=== PATIENT | male | born 1965 | race Caucasian/White ===

== ENCOUNTER 2016-11-23 07:23 | Emergency (ER) | payer BC ==
[2016-11-23 07:40] VITALS: TEMP 98.7; BMI 32.3
[2016-11-23 08:20] LABS: ALL NEG? NO
[2016-11-23 08:31] LABS: AUTOMATED BASOPHIL 0.4 % (0-2); AUTOMATED EOSINOPHIL 0.3 % (0-5); AUTOMATED LYMPH 23.7 % (17-44); AUTOMATED MONOCYTE 4.4 % (3-10); AUTOMATED NEUTROPHIL 71.2 % (45-76); MPV 7.1 fL (7.4-10.4)
[2016-11-23 08:32] LABS: RBC/URINE 0-2 (0-2); WBC/URINE 0-2 (0-2)
[2016-11-23 08:36] LABS: METHAMPHETAMINES NEG (NEGATIVE)
[2016-11-23 08:37] LABS: MDMA* NEG (NEGATIVE); OXYCODONE NEG (NEGATIVE)
[2016-11-23 08:45] LABS: LEUKOCYTES/URINE NEG (NEGATIVE); NITRITE/URINE NEG (NEGATIVE); URINE OCCULT BLOOD NEG (NEG/TRACE)
[2016-11-23 08:46] LABS: BLOOD UREA NITROGEN 20 MG/DL (9-20); CALCIUM 9.4 MG/DL (8.4-10.2); CALCULATED OSMOLALITY 270 MOs/Kg (270-290); CHLORIDE 94 mEq/L (98-107); CPK (TOTAL ONLY) 88 IU/L (55-170); GLUCOSE 191 MG/DL (70-99); SODIUM LEVEL 136 mEq/L (137-146)
--- NOTE | 2016-11-23 08:51 | DIRPT ---
CLINICAL DATA: Several day history weakness; possibly related to medication; none in PACs EXAM: CHEST 2 VIEW COMPARISON: None in PACs FINDINGS: The lungs are adequately inflated. There is no focal infiltrate. There is no pleural effusion. The heart and pulmonary vascularity are normal. The mediastinum is normal in width. 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 IMPRESSION: There is no active cardiopulmonary disease. Electronically Signed By: Yosef Deng M.D. On: 11/23/2016 08:49
[2016-11-23 09:16] LABS: hTSH 0.52 uIU/mL (0.5-4.67)
--- NOTE | 2016-11-23 09:33 | EDPRACDOC ---
- General Information Chief Complaint: Generalized Weakness Stated Complaint: WEAKNESS Time Seen by Provider: 11/23/16 07:37 Information Source: Patient Home Medications: Home Medications Diphenhydramine HCl [Sleep Aid] 25 mg PO .UP TO 5XDAILY PRN 11/23/16 Metformin HCl 500 mg PO BID #60 tab 11/23/16 Methadone HCl 150 mg PO DAILY 11/23/16 Pimozide [Orap] 2 mg PO TID 11/23/16 Allergies/Adverse Reactions: Allergies Allergy/AdvReac Type Severity Reaction Status Date / Time No Known Drug Allergies Allergy Unknown Verified 11/23/16 08:05 - History of Present Illness Onset: SEVERAL DAYS Exact Onset of Symptoms: Unknown Symptoms Started: Reports: Gradually Symptoms Description: Constant Weakness: Bilateral: Generalized Symptoms: Reports: Weak Symptom Severity: Reports: Does not affect activitiy Associated signs and symptoms:: Reports: None Other History: GENERALIZED WEAKNESS FOR SEVERAL WEEKS NOW. NO ALLEVIATING OR AGGRAVATING FACTORS. RECENTLY ASSOCIATED WITH INSOMNIA HE WAS TAKING [id number] BENADRYL 4-5 PER DAY TO ASSIST WITH SLEEPING HOWEVER HE HAS NOT USED THIS FOR APPROXIMATELY 1 WEEK. PATIENT HAS NOT FELT WELL, THEREFORE HE IS TAKING VACATION TIME CC CAN GET RIGHT LEG IS HELD BACK TO NORMAL TODAY CAN CONTINUE WORK. 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 negative: Chills, Fever, Diaphoresis, Weight gain, Weight loss Eyes: No Symptoms Reported Ears: No Symptoms Reported Throat: No Symptoms Reported Mouth: No Symptoms Reported Respiratory: No Symptoms Reported. negative: Shortness of Breath Cardiovascular: Other (NO DYSPNEA ON EXERTION). negative: Chest Pain, Cyanosis , Edema, Orthopnea, PND, Syncope Gastrointestinal: No Symptoms Reported Genitourinary: No Symptoms Reported Neurological: Weakness. negative: Gait Difficulty, Headache, Numbness, Mood Changes, Memory Changes Musculoskeletal: No Symptoms Reported Integumentary: No Symptoms Reported Allergic/Immunologic: No Symptoms Reported Hematologic: No Symptoms Reported - Physical Exam Constitutional: Alert (Awake), No apparent distress Oriented to: Time, Person, Place Last recorded Vital Signs: Last Vital Signs Temp 98.7 F 11/23/16 07:36 Pulse 85 11/23/16 09:10 Resp 16 11/23/16 09:10 BP 157/84 11/23/16 09:10 Pulse Ox 93 11/23/16 09:10 Oxygen Pulse Oxygen Saturation 93 O2 Device Room Air Oxygen Flow Rate Fraction of Inspired Oxygen ( FIO2) - HEENT Head: Normal ( normocephalic) Eye Exam: Normal (PERRL, EOMI, Sclera white) Oropharynx: Normal (Pharynx:Moist without exudate,Gums-no swelling) Tympanic Membrane: Normal ENT EAC: Normal TMJ: Normal Nose: No Symptoms Reported (septum midline) Neck: Normal (FROM, trachea at midline) - Respiratory/Cardiovascular Respiratory: Normal - CTA (BBS clear to auscultation without adventitious sounds ) Cardiovascular: Normal (RRR without murmur, gallop or rub) - GI Auscultation: Normal (NABS) Palpation: Normal (Soft,No rebound or guarding, non distended) Tenderness: Non tender Jarvis's Sign: Negative - Musculoskeletal Back: Normal (Non-Tender) Extremities: Normal (Normal tone, Pulses 2+ No cyanosis or edema, FROM) - Integumentary Skin: Normal, Warm, Dry Lymphatics: Normal (no adenopathy) - Neurologic Memory Impaired: Normal Motor Function: Normal (Normal tone, Pulses 2+ No cyanosis or edema, FROM) Cranial Nerve: Normal (CN II-X11 intact sensation, strength 5/5) Cerebellar: Normal Mood Description: Normal Perception: Normal - Results 11/23/16 08:23 11/23/16 08:23 WBC 7.5 xk/uL (3.8-10.8) 11/23/16 08:23 RBC 4.78 xM/uL (4.70-6.10) 11/23/16 08:23 Hgb 13.8 g/dL (14.0-18.0) L 11/23/16 08:23 Hct 40.8 % (42-52) L 11/23/16 08:23 MCV 85 fL (80-94) 11/23/16 08:23 MCH 28.9 pg (27-32) 11/23/16 08:23 MCHC 33.9 g/dl (33-36) 11/23/16 08:23 RDW 14.4 % (11.5-14.5) 11/23/16 08:23 Plt Count 270 xk/uL (130-400) 11/23/16 08:23 MPV 7.1 fL (7.4-10.4) L 11/23/16 08:23 Neut % (Auto) 71.2 % (45-76) 11/23/16 08:23 Lymph % (Auto) 23.7 % (17-44) 11/23/16 08:23 [place] % (Auto) 4.4 % (3-10) 11/23/16 08:23 Eos % (Auto) 0.3 % (0-5) 11/23/16 08:23 Baso % (Auto) 0.4 % (0-2) 11/23/16 08:23 Absolute Neuts (auto) 5.33 xk/uL (1.7-8.2) 11/23/16 08:23 Absolute Lymphs (auto) 1.73 xk/uL (0.65-4.75) 11/23/16 08:23 Sodium 136 mEq/L (137-146) L 11/23/16 08:23 Potassium 3.7 mEq/L (3.5-5.1) 11/23/16 08:23 Chloride 94 mEq/L (98-107) L 11/23/16 08:23 Carbon Dioxide 29 mMOL/L (22-33) 11/23/16 08:23 Anion Gap 17 mEq/L (8-16) H 11/23/16 08:23 BUN 20 MG/DL (9-20) 11/23/16 08:23 Creatinine 0.70 MG/DL (0.66-1.25) 11/23/16 08:23 Estimated GFR (MDRD) > 60 mL/min (>=60) 11/23/16 08:23 Glucose 191 MG/DL (70-99) H 11/23/16 08:23 Calculated Osmolality 270 MOs/Kg (270-290) 11/23/16 08:23 Calcium 9.4 MG/DL (8.4-10.2) 11/23/16 08:23 Total Bilirubin 0.5 MG/DL (0.2-1.3) 11/23/16 08:23 AST 23 IU/L (17-59) 11/23/16 08:23 ALT 33 IU/L (21-72) 11/23/16 08:23 Alkaline Phosphatase 82 IU/L (38-126) 11/23/16 08:23 Total Creatine Kinase 88 IU/L (55-170) 11/23/16 08:23 Troponin I < 0.01 ng/mL (<.04) 11/23/16 08:23 Total Protein 8.0 G/DL (6.3-8.2) 11/23/16 08:23 Albumin 4.5 G/DL (3.5-5.0) 11/23/16 08:23 TSH 0.52 uIU/mL (0.5-4.67) 11/23/16 08:23 Urine Color Yellow 11/23/16 08:13 Urine Clarity Clear 11/23/16 08:13 Urine pH 6.0 (5.0-8.0) 11/23/16 08:13 Ur Specific [place] 1.015 (1.003-1.035) 11/23/16 08:13 Urine Protein Neg (NEG/TRACE) 11/23/16 08:13 Urine Glucose (UA) 1+ (NEGATIVE) 11/23/16 08:13 Urine Ketones Neg (NEGATIVE) 11/23/16 08:13 Urine Occult Blood Neg (NEG/TRACE) 11/23/16 08:13 Urine Nitrite Neg (NEGATIVE) 11/23/16 08:13 Urine Bilirubin Neg (NEGATIVE) 11/23/16 08:13 Urine Urobilinogen 0.2 MG/DL (0-1) 11/23/16 08:13 Ur Leukocyte Esterase Neg (NEGATIVE) 11/23/16 08:13 Urine RBC 0-2 (0-2) 11/23/16 08:13 Urine WBC 0-2 (0-2) 11/23/16 08:13 Ur Epithelial Cells Occ 11/23/16 08:13 Urine Mucus Occ (NEG/OCC) 11/23/16 08:13 Urine Opiates Screen Neg (NEGATIVE) 11/23/16 08:13 Ur Oxycodone Screen Neg (NEGATIVE) 11/23/16 08:13 Urine Methadone Screen *positive* (NEGATIVE) H 11/23/16 08:13 Ur Barbiturates Screen Neg (NEGATIVE) 11/23/16 08:13 Ur Tricyclics Screen Neg (NEGATIVE) 11/23/16 08:13 Ur Phencyclidine Scrn Neg (NEGATIVE) 11/23/16 08:13 Ur Amphetamines Screen Neg (NEGATIVE) 11/23/16 08:13 U Methamphetamines Scrn Neg (NEGATIVE) 11/23/16 08:13 Urine MDMA Screen Neg (NEGATIVE) 11/23/16 08:13 U Benzodiazepines Scrn Neg (NEGATIVE) 11/23/16 08:13 Urine Cocaine Screen Neg (NEGATIVE) 11/23/16 08:13 Ur THC Screen Neg (NEGATIVE) 11/23/16 08:13 Lab Results 11/23/16 11/23/16 11/23/16 08:23 08:23 08:13 WBC 7.5 RBC 4.78 Hgb 13.8 L Hct 40.8 L MCV 85 MCH 28.9 MCHC 33.9 RDW 14.4 Plt Count 270 MPV 7.1 L Neut % (Auto) 71.2 Lymph % (Auto) 23.7 [place] % (Auto) 4.4 Eos % (Auto) 0.3 Baso % (Auto) 0.4 Absolute Neuts (auto) 5.33 Absolute Lymphs (auto) 1.73 Sodium 136 L Potassium 3.7 Chloride 94 L Carbon Dioxide 29 Anion Gap 17 H BUN 20 Creatinine 0.70 Estimated GFR (MDRD) > 60 Glucose 191 H Calculated Osmolality 270 Calcium 9.4 Total Bilirubin 0.5 AST 23 ALT 33 Alkaline Phosphatase 82 Total Creatine Kinase 88 Troponin I < 0.01 Total Protein 8.0 Albumin 4.5 TSH 0.52 Urine Color Yellow Urine Clarity Clear Urine pH 6.0 Ur Specific [place] 1.015 Urine Protein Neg Urine Glucose (UA) 1+ Urine Ketones Neg Urine Occult Blood Neg Urine Nitrite Neg Urine Bilirubin Neg Urine Urobilinogen 0.2 Ur Leukocyte Esterase Neg Urine RBC 0-2 Urine WBC 0-2 Ur Epithelial Cells Occ Urine Mucus Occ Urine Opiates Screen Ur Oxycodone Screen Urine Methadone Screen Ur Barbiturates Screen Ur Tricyclics Screen Ur Phencyclidine Scrn Ur Amphetamines Screen U Methamphetamines Scrn Urine MDMA Screen U Benzodiazepines Scrn Urine Cocaine Screen Ur THC Screen 11/23/16 08:13 WBC RBC Hgb Hct MCV MCH MCHC RDW Plt Count MPV Neut % (Auto) Lymph % (Auto) [place] % (Auto) Eos % (Auto) Baso % (Auto) Absolute Neuts (auto) Absolute Lymphs (auto) Sodium Potassium Chloride Carbon Dioxide Anion Gap BUN Creatinine Estimated GFR (MDRD) Glucose Calculated Osmolality Calcium Total Bilirubin AST ALT Alkaline Phosphatase Total Creatine Kinase Troponin I Total Protein Albumin TSH Urine Color Urine Clarity Urine pH Ur Specific [place] Urine Protein Urine Glucose (UA) Urine Ketones Urine Occult Blood Urine Nitrite Urine Bilirubin Urine Urobilinogen Ur Leukocyte Esterase Urine RBC Urine WBC Ur Epithelial Cells Urine Mucus Urine Opiates Screen Neg Ur Oxycodone Screen Neg Urine Methadone Screen *positive* H Ur Barbiturates Screen Neg Ur Tricyclics Screen Neg Ur Phencyclidine Scrn Neg Ur Amphetamines Screen Neg U Methamphetamines Scrn Neg Urine MDMA Screen Neg U Benzodiazepines Scrn Neg Urine Cocaine Screen Neg Ur THC Screen Neg - EKG EKG #1 EKG Time: 08:13 -: Yes EKG interpreted by me Rate: bpm: 89 [place]: Normal Rhythm: NSR Block: None Hypertrophy: None ST: Normal - Diagnostic Imaging Chest Image interpreted by: Radiologist Patient Name: DILLON PANTOJA LOC: ED : 1965 AGE: 51 Order Date:11/23/16 Date of Service: Report # [id number] Ord Physician: Bella Wagner MD Exam # [id number] Emergency Physician: Bella Wagner MD Exam(s): [id number] RAD/DG CHEST 2V CLINICAL DATA: Several day history weakness; possibly related to medication; none in PACs EXAM: CHEST 2 VIEW COMPARISON: None in PACs FINDINGS: The lungs are adequately inflated. There is no focal infiltrate. There is no pleural effusion. The heart and pulmonary vascularity are normal. The mediastinum is normal in width. 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 IMPRESSION: There is no active cardiopulmonary disease. Electronically Signed By: Yosef Deng M.D. On: 11/23/2016 08:49 Electronically Signed By: Yosef Deng MD Electronically Signed Date/Time: [id number] Dictate Date/Time: 11/23/16846 Technologist: Shantel Grya Transcribed By: Chelle Transcribed Date/Time: 11/23/16 0849 - Departure Disposition: Home Condition: Stable Final Diagnosis: Generalized weakness, Hyperglycemia Instructions: Weakness (General), Type 2 Diabetes in Adults (ED) Education/Counseling Given To: Patient, Significant Other Education/Counseling Given Regarding: Diagnosis, Treatment, Prognosis Referrals: Edilson Ochoa MD [Staff Physician] - One Week Prescriptions: New Metformin HCl 500 mg PO BID #60 tab No Action Pimozide [Orap] 2 mg PO TID Methadone HCl 150 mg PO DAILY Diphenhydramine HCl [Sleep Aid] 25 mg PO .UP TO 5XDAILY PRN PRN Reason: Sleep Or Insomnia
[2016-11-23 09:55] VITALS: BP 165/90; PULSE 91
== END 2016-11-23 09:54 | disposition home or self-care (01) ==
LOC: ED 07:23
DX: R53.1 Weakness (principal); R73.9 Hyperglycemia, unspecified
CPT/HCPCS: 36415; 71020; 80053; 80307; 81001; 82550; 84443; 84484; 85025; 93005; 99283